=== PATIENT | female | born 1940 | race African-American/Black ===

== ENCOUNTER 2017-01-16 11:19 | Emergency (ER) | payer MEDICARE, MEDICAID ==
[~2017-01-16] VITALS: Ht 175.3 cm; Wt 113.0 kg
[~2017-01-16 11:19] MED LIST: AMLO5TAB4 PO; ASPI-1158 PO; BENA20TA3 PO; BRIM.2 BOTHEYE; FAMO40TA70 PO; INSULIN SUBCUT; METF100C2 PO; VITA400C24 PO
[2017-01-16] MEDS ORDERED: MORPHINE SULFATE 4 MG/ML CPJ (NOT FOR IM USE) IV STA (11:56)
[2017-01-16] MEDS ORDERED: ONDANSETRON HCL 4MG/2ML VIAL IV STA (11:56)
[2017-01-16] MEDS ORDERED: SODIUM CHLORIDE 0.9% 500 ML IV ONE (11:56)
[2017-01-16 12:22] LABS: BASOPHILS % 0.3 % (0.0-2.0); EOSINOPHILS % 2.5 % (0.0-5.0); HEMATOCRIT. 34.9 % (36.0-48.0); HEMOGLOBIN. 11.8 g/dL (12.0-16.0); LYMPHOCYTES % 31.4 % (20.0-50.0); MEAN CORPUSCULAR HEMOGLOBIN 32.2 pg (28.0-32.0); MEAN CORPUSCULAR VOLUME 95.6 fL (81.0-99.0); MEAN PLATELET VOLUME 8.6 fl (7.4-10.4); MONOCYTES % 8.8 % (2.0-8.0); PLATELET 152 x1000/uL (130-400); RED BLOOD CELL COUNT 3.65 mill/uL (4.2-5.4)
[2017-01-16 12:29] LABS: INR 1.2; PROTHROMBIN TIME 12.9 sec (9.4-11.6)
[2017-01-16 12:36] LABS: CLARITY URINE CLEAR (CLEAR); COLOR URINE YELLOW (YELLOW); GLUCOSE URINE 1+ (NEGATIVE); KETONES URINE NEGATIVE (NEGATIVE); LEUKOCYTE ESTERASE URINE NEGATIVE (NEGATIVE); NITRITE URINE NEGATIVE (NEGATIVE); OCCULT BLOOD URINE NEGATIVE (NEGATIVE); PROTEIN URINE NEGATIVE (NEGATIVE); SPECIFIC GRAVITY URINE 1.015 (1.005-1.030); UROBILINOGEN URINE 0.2 E.U./dL (0.2-1.0)
[2017-01-16 12:40] LABS: CARBON DIOXIDE 30 mEq/L (21-32); CHLORIDE 102 mEq/L (98-107); TROPONIN I < 0.02 ng/mL (0.00-0.04)
[2017-01-16 16:59] VITALS: BP 121/68
[2017-02-20] MEDS ORDERED: ESOM20CA PO (12:28)
[2017-02-24] MEDS ORDERED: P20 PO (20:14)
== END 2017-01-16 17:01 | disposition home or self-care (01) ==
LOC: ER 11:31 → CANRESERV 13:34 → ENRESERV 13:34 → CANBEDREQ 16:12 → ER 17:01
DX: R51 Headache (principal); R07.9 Chest pain, unspecified; R10.30 Lower abdominal pain, unspecified; I10 Essential (primary) hypertension; E78.00 Pure hypercholesterolemia, unspecified; E11.65 Type 2 diabetes mellitus with hyperglycemia; Z88.0 Allergy status to penicillin; Z91.013 Allergy to seafood; Z79.82 Long term (current) use of aspirin; Z79.4 Long term (current) use of insulin
CPT/HCPCS: 36415; 70450; 71010; 74176; 80053; 81001; 82962; 83690; 83880; 84484; 85025; 85610; 93005; 96361; 96374; 96375; 99285; J2270; J2405; J7040; J7030

== ENCOUNTER 2021-05-07 11:56 | Inpatient (IN) | payer MEDICARE, MEDICAID ==
[~2021-05-07] VITALS: Ht 154.9 cm; Wt 142.9 kg
[~2021-05-07 11:56] MED LIST changes: -ASPI-1158 PO; +ASPI-1406 PO; +BENA20TA10 PO; -BENA20TA3 PO; +ESOM20CA PO; +P20 PO
[2021-05-07] MEDS ORDERED: ASPIRIN 81MG TABLET PO ONE (12:15)
[2021-05-07 13:04] LABS: CHLORIDE 103 mEq/L (98-107)
[2021-05-07 13:06] LABS: BASOPHILS % 0.3 % (0.0-2.0); EOSINOPHILS % 3.5 % (0.0-5.0); HEMATOCRIT. 34.9 % (36.0-48.0); HEMOGLOBIN. 12.1 g/dL (12.0-16.0); LYMPHOCYTES % 31.3 % (20.0-50.0); MEAN CORPUSCULAR HEMOGLOBIN 32.8 pg (28.0-32.0); MEAN PLATELET VOLUME 8.4 fl (7.4-10.4); MONOCYTES % 9.3 % (2.0-8.0); NEUTROPHILS % 55.6 % (40.0-76.0); PLATELET 201 x1000/uL (130-400); RED BLOOD CELL COUNT 3.68 mill/uL (4.2-5.4)
[2021-05-07] MEDS ORDERED: ASPIRIN 81MG TABLET PO NR (18:45)
[2021-05-07] MEDS ORDERED: SODIUM CHLORIDE 0.9% 1,000 ML IV ONE (18:45)
[2021-05-07] MEDS: NITROGLYCERIN 0.4MG TABLET SL SL PRN ×2 (19:45→23:32)
[2021-05-07 20:23] LABS: CLARITY URINE CLEAR (CLEAR); COLOR URINE YELLOW (YELLOW); KETONES URINE TRACE (NEGATIVE); NITRITE URINE NEGATIVE (NEGATIVE); OCCULT BLOOD URINE NEGATIVE (NEGATIVE); PROTEIN URINE NEGATIVE (NEGATIVE); SPECIFIC GRAVITY URINE 1.025 (1.005-1.030)
[2021-05-07 20:24] LABS: LEUKOCYTE ESTERASE URINE TRACE (NEGATIVE)
[2021-05-07] MEDS ORDERED: LEVOFLOXACIN 750MG PREMIX 150 ML IV ONE (21:00)
[2021-05-07] MEDS ORDERED: METRONIDAZOLE 500 MG PREMIX 100 ML IV ONE (22:30)
[2021-05-08] MEDS: METRONIDAZOLE 500MG TABLET PO NR ×2 (00:26→00:28)
[2021-05-08] MEDS ORDERED: CLONIDINE 0.1MG TABLET PO PRN (01:00)
[2021-05-08] MEDS ORDERED: DIPHENHYDRAMINE 50MG/ML VIAL IV PRN (01:00)
[2021-05-08] MEDS ORDERED: ZOLPIDEM TARTRATE 5MG TABLET PO PRN (01:00)
[2021-05-08] MEDS ORDERED: ONDANSETRON HCL 4MG/2ML INJ IV PRN (01:00)
[2021-05-08] MEDS ORDERED: MAGNESIUM/ALUMINUM HYDROXIDE/SIMETHICONE 30ML UDC PO PRN (01:00)
[2021-05-08] MEDS ORDERED: MAGNESIUM HYDROXIDE 400MG/5ML 30ML UDC PO PRN (01:00)
[2021-05-08] MEDS ORDERED: ACETAMINOPHEN 325MG TABLET PO PRN (01:00)
[2021-05-08] MEDS ORDERED: DEXTROSE 50% WATER 50ML SYRINGE IV PRN (01:00)
[2021-05-08] MEDS ORDERED: NALOXONE HCL 0.4 MG/ML 1ML VIAL IV PRN (01:15)
[2021-05-08] MEDS: INSULIN LISPRO 100 UNITS/ML SUBCUT SCH ×4 (06:47→22:26)
[2021-05-08] MEDS: BLOOD SUGAR DIAGNOSTIC STRIP TEST SCH ×4 (06:47→21:00)
[2021-05-08] MEDS: PANTOPRAZOLE 40MG DR TABLET PO SCH ×2 (06:57→21:41)
[2021-05-08] MEDS: AMLODIPINE 5MG TABLET PO SCH (09:02)
[2021-05-08] MEDS: BENAZEPRIL 10MG TABLET PO SCH (10:37)
[2021-05-08 12:50] VITALS: BP 162/78
[2021-05-08 13:30] VITALS: BP 162/78
[2021-05-08] MEDS ORDERED: ATOR40TA70 PO (14:57)
[2021-05-08] MEDS ORDERED: FAMO-135 PO (14:57)
[2021-05-08 16:00] VITALS: BP 149/77
[2021-05-08] MEDS ORDERED: PNEUMOCOCCAL 23-VAL P-SAC VAC 0.5 ML IM ONE (16:45)
[2021-05-08] MEDS ORDERED: INFLUENZA VACCINE 05/PF 0.5 ML SYRINGE IM ONE (16:45)
[2021-05-08] MEDS: METHYL SALICYLATE/MENTHOL CREAM 85GM TOP SCH (18:00)
[2021-05-08] MEDS: LIDOCAINE 5% PATCH TOP SCH (18:04)
[2021-05-08] MEDS: ACETAMINOPHEN 325MG TABLET PO PRN (18:05)
[2021-05-08] MEDS: SODIUM CHLORIDE 0.9% INJ 3ML FLUSH IVF SCH ×3 (18:06→22:27)
[2021-05-08 20:00] VITALS: BP 152/76
[2021-05-08] MEDS ORDERED: LEVOFLOXACIN 500MG PREMIX 100 ML IV SCH (21:00)
[2021-05-08] MEDS: TRAMADOL 50MG TABLET PO PRN (21:42)
[2021-05-08] MEDS: INSULIN GLARGINE UD 100 UNITS/ML SYR SUBCUT SCH (22:25)
[2021-05-08] MEDS: DORZOLAMIDE 2% OPHTH 10 ML BOTTLE BOTHEYE SCH (22:27)
[2021-05-09] VITALS: BP 140/93
[2021-05-09 04:00] VITALS: BP 157/87
[2021-05-09] MEDS: SODIUM CHLORIDE 0.9% INJ 3ML FLUSH IVF SCH ×3 (06:00→22:02)
[2021-05-09] MEDS: METHYL SALICYLATE/MENTHOL CREAM 85GM TOP SCH ×4 (06:00→18:26)
[2021-05-09] MEDS: BLOOD SUGAR DIAGNOSTIC STRIP TEST SCH ×4 (06:45→21:00)
[2021-05-09] MEDS: PANTOPRAZOLE 40MG DR TABLET PO SCH (06:45)
[2021-05-09 08:00] VITALS: BP 133/77
[2021-05-09 08:50] LABS: FOLIC ACID (FOLATE) SERUM 12.9 ng/mL (>5.38)
[2021-05-09] MEDS: LIDOCAINE 5% PATCH TOP SCH (09:00)
[2021-05-09] MEDS: DORZOLAMIDE 2% OPHTH 10 ML BOTTLE BOTHEYE SCH ×2 (09:05→22:01)
[2021-05-09] MEDS: BENAZEPRIL 10MG TABLET PO SCH (09:05)
[2021-05-09] MEDS: AMLODIPINE 5MG TABLET PO SCH (09:06)
[2021-05-09] MEDS: TRAMADOL 50MG TABLET PO PRN ×2 (09:06→16:29)
[2021-05-09] MEDS: METFORMIN HCL 500MG TABLET PO SCH ×2 (09:06→16:29)
[2021-05-09] MEDS: INSULIN LISPRO 100 UNITS/ML SUBCUT SCH ×4 (09:07→22:06)
[2021-05-09 12:00] VITALS: BP 146/60
[2021-05-09 15:48] VITALS: BP 131/71
[2021-05-09] MEDS: ACETAMINOPHEN 500MG TABLET PO SCH ×2 (16:15→21:55)
[2021-05-09] MEDS: DOCUSATE SODIUM 100MG CAPSULE PO SCH (16:29)
[2021-05-09] MEDS ORDERED: LORAZEPAM 2MG/ML CPJ IV NR (16:30)
[2021-05-09 20:00] VITALS: BP 135/90
[2021-05-09] MEDS: FAMOTIDINE 20MG TABLET PO SCH (21:54)
[2021-05-09] MEDS: INSULIN GLARGINE UD 100 UNITS/ML SYR SUBCUT SCH (22:01)
[2021-05-09] MEDS: POLYETHYLENE GLYCOL 3350 (17GM) 1 DOSE PACK PO SCH (22:01)
[2021-05-10] VITALS: BP 119/66
[2021-05-10] MEDS: METHYL SALICYLATE/MENTHOL CREAM 85GM TOP SCH ×4 (00:50→18:07)
[2021-05-10 04:00] VITALS: BP 121/83
[2021-05-10] MEDS: ACETAMINOPHEN 500MG TABLET PO SCH ×4 (06:09→22:50)
[2021-05-10] MEDS: SODIUM CHLORIDE 0.9% INJ 3ML FLUSH IVF SCH ×3 (06:10→22:00)
[2021-05-10] MEDS: BLOOD SUGAR DIAGNOSTIC STRIP TEST SCH ×4 (06:14→21:05)
[2021-05-10] MEDS: INSULIN LISPRO 100 UNITS/ML SUBCUT SCH ×4 (07:15→21:00)
[2021-05-10 08:00] VITALS: BP 139/68
[2021-05-10] MEDS: DOCUSATE SODIUM 100MG CAPSULE PO SCH ×2 (08:31→17:00)
[2021-05-10] MEDS: FAMOTIDINE 20MG TABLET PO SCH ×2 (08:31→21:06)
[2021-05-10] MEDS: METFORMIN HCL 500MG TABLET PO SCH ×2 (08:31→18:06)
[2021-05-10] MEDS: BENAZEPRIL 10MG TABLET PO SCH (08:31)
[2021-05-10] MEDS: DORZOLAMIDE 2% OPHTH 10 ML BOTTLE BOTHEYE SCH ×2 (08:32→21:05)
[2021-05-10] MEDS: TRAMADOL 50MG TABLET PO PRN (08:32)
[2021-05-10] MEDS: AMLODIPINE 5MG TABLET PO SCH (08:34)
[2021-05-10] MEDS: LIDOCAINE 5% PATCH TOP SCH (11:15)
[2021-05-10 12:00] VITALS: BP 136/65
[2021-05-10 16:00] VITALS: BP 142/69
[2021-05-10 20:00] VITALS: BP 154/82
[2021-05-10] MEDS: POLYETHYLENE GLYCOL 3350 (17GM) 1 DOSE PACK PO SCH (21:05)
[2021-05-10] MEDS: INSULIN GLARGINE UD 100 UNITS/ML SYR SUBCUT SCH (22:52)
[2021-05-11] VITALS: BP 136/52
[2021-05-11] MEDS: METHYL SALICYLATE/MENTHOL CREAM 85GM TOP SCH ×4 (00:45→18:29)
[2021-05-11 04:00] VITALS: BP 116/60
[2021-05-11] MEDS: ACETAMINOPHEN 500MG TABLET PO SCH ×3 (05:11→17:31)
[2021-05-11] MEDS: SODIUM CHLORIDE 0.9% INJ 3ML FLUSH IVF SCH ×2 (06:21→13:28)
[2021-05-11] MEDS: INSULIN LISPRO 100 UNITS/ML SUBCUT SCH ×4 (07:15→22:11)
[2021-05-11] MEDS: BLOOD SUGAR DIAGNOSTIC STRIP TEST SCH ×4 (07:20→21:00)
[2021-05-11 08:00] VITALS: BP 125/67
[2021-05-11] MEDS: BENAZEPRIL 10MG TABLET PO SCH (09:00)
[2021-05-11] MEDS: AMLODIPINE 5MG TABLET PO SCH (09:00)
[2021-05-11] MEDS: DOCUSATE SODIUM 100MG CAPSULE PO SCH ×2 (09:13→17:31)
[2021-05-11] MEDS: FAMOTIDINE 20MG TABLET PO SCH ×2 (09:13→22:09)
[2021-05-11] MEDS: METFORMIN HCL 500MG TABLET PO SCH ×2 (09:13→17:31)
[2021-05-11] MEDS: LIDOCAINE 5% PATCH TOP SCH (09:15)
[2021-05-11] MEDS: DORZOLAMIDE 2% OPHTH 10 ML BOTTLE BOTHEYE SCH ×2 (09:18→22:09)
[2021-05-11 12:00] VITALS: BP 169/73
[2021-05-11] MEDS: TRAMADOL 50MG TABLET PO PRN ×2 (13:07→22:09)
[2021-05-11 16:00] VITALS: BP 153/92
[2021-05-11] MEDS ORDERED: ACETAMINOPHEN 500MG TABLET PO PRN (18:00)
[2021-05-11] MEDS ORDERED: KETOROLAC 10MG TABLET PO PRN (19:45)
[2021-05-11 20:00] VITALS: BP 157/58
[2021-05-11] MEDS: POLYETHYLENE GLYCOL 3350 (17GM) 1 DOSE PACK PO SCH (22:09)
[2021-05-11] MEDS: INSULIN GLARGINE UD 100 UNITS/ML SYR SUBCUT SCH (22:10)
[2021-05-12] VITALS: BP 151/82
[2021-05-12] MEDS: SODIUM CHLORIDE 0.9% INJ 3ML FLUSH IVF SCH ×4 (00:47→22:36)
[2021-05-12] MEDS: METHYL SALICYLATE/MENTHOL CREAM 85GM TOP SCH ×5 (00:48→22:00)
[2021-05-12 04:00] VITALS: BP 132/71
[2021-05-12] MEDS: TRAMADOL 50MG TABLET PO PRN ×2 (05:40→13:44)
[2021-05-12] MEDS: BLOOD SUGAR DIAGNOSTIC STRIP TEST SCH ×4 (06:45→21:00)
[2021-05-12] MEDS: METFORMIN HCL 500MG TABLET PO SCH ×2 (07:15→17:15)
[2021-05-12] MEDS: INSULIN LISPRO 100 UNITS/ML SUBCUT SCH ×4 (07:15→21:00)
[2021-05-12] MEDS: DOCUSATE SODIUM 100MG CAPSULE PO SCH ×2 (09:00→17:00)
[2021-05-12] MEDS: BENAZEPRIL 10MG TABLET PO SCH (09:00)
[2021-05-12] MEDS: DORZOLAMIDE 2% OPHTH 10 ML BOTTLE BOTHEYE SCH ×2 (09:00→22:35)
[2021-05-12] MEDS: LIDOCAINE 5% PATCH TOP SCH (09:00)
[2021-05-12] MEDS: AMLODIPINE 5MG TABLET PO SCH (09:00)
[2021-05-12] MEDS: FAMOTIDINE 20MG TABLET PO SCH ×2 (09:00→22:35)
[2021-05-12 20:00] VITALS: BP 144/78
[2021-05-12] MEDS: INSULIN GLARGINE UD 100 UNITS/ML SYR SUBCUT SCH (22:00)
[2021-05-12] MEDS: POLYETHYLENE GLYCOL 3350 (17GM) 1 DOSE PACK PO SCH (22:35)
[2021-05-13] VITALS: BP 135/68
[2021-05-13 04:00] VITALS: BP 140/71
[2021-05-13] MEDS: SODIUM CHLORIDE 0.9% INJ 3ML FLUSH IVF SCH ×3 (05:58→22:15)
[2021-05-13] MEDS: METHYL SALICYLATE/MENTHOL CREAM 85GM TOP SCH ×3 (05:58→17:31)
[2021-05-13] MEDS: BLOOD SUGAR DIAGNOSTIC STRIP TEST SCH ×4 (05:59→21:57)
[2021-05-13] MEDS: INSULIN LISPRO 100 UNITS/ML SUBCUT SCH ×4 (07:15→21:54)
[2021-05-13 08:00] VITALS: BP 167/72
[2021-05-13] MEDS: DORZOLAMIDE 2% OPHTH 10 ML BOTTLE BOTHEYE SCH ×2 (09:26→21:57)
[2021-05-13] MEDS: AMLODIPINE 5MG TABLET PO SCH ×3 (09:27→21:51)
[2021-05-13] MEDS: DOCUSATE SODIUM 100MG CAPSULE PO SCH ×2 (09:27→17:31)
[2021-05-13] MEDS: FAMOTIDINE 20MG TABLET PO SCH ×2 (09:27→22:14)
[2021-05-13] MEDS: BENAZEPRIL 10MG TABLET PO SCH (09:27)
[2021-05-13] MEDS: METFORMIN HCL 500MG TABLET PO SCH ×2 (09:27→17:31)
[2021-05-13] MEDS: LIDOCAINE 5% PATCH TOP SCH (09:28)
[2021-05-13] MEDS: ACETAMINOPHEN 325MG TABLET PO PRN (09:29)
[2021-05-13 12:00] VITALS: BP 165/80
[2021-05-13 16:00] VITALS: BP 155/60
[2021-05-13] MEDS: POLYETHYLENE GLYCOL 3350 (17GM) 1 DOSE PACK PO SCH (21:49)
[2021-05-13] MEDS: INSULIN GLARGINE UD 100 UNITS/ML SYR SUBCUT SCH (21:53)
[2021-05-13 22:00] VITALS: BP 147/87
[2021-05-13] MEDS ORDERED: MICONAZOLE NITRATE 100MG VAG SUPP VG SCH (22:00)
[2021-05-13] MEDS ORDERED: FLUCONAZOLE 100MG TABLET PO SCH (22:00)
[2021-05-16 15:11] LABS: 25-HYDROXY VITAMIN D3 47 ng/mL (.)
== END 2021-05-13 22:33 | disposition short-term general hospital (02) | DRG 552 ==
LOC: ER 11:56 → MICUSO 20:53 → EDBEDREQTM 21:07 → EDBEDREQ 21:07 → 5WST 05-08 12:47
PROVIDERS: ADMIT Internal Medicine; ATTEND Internal Medicine
DX: M47.814 Spondylosis without myelopathy or radiculopathy, thoracic region (principal); N39.0 Urinary tract infection, site not specified; Z68.42 Body mass index [BMI] 45.0-49.9, adult; M48.061 Spinal stenosis, lumbar region without neurogenic claudication; E66.01 Morbid (severe) obesity due to excess calories; E78.00 Pure hypercholesterolemia, unspecified; G56.03 Carpal tunnel syndrome, bilateral upper limbs; H40.9 Unspecified glaucoma; I25.10 Atherosclerotic heart disease of native coronary artery without angina pectoris; M16.0 Bilateral primary osteoarthritis of hip; E11.42 Type 2 diabetes mellitus with diabetic polyneuropathy; I10 Essential (primary) hypertension; G89.29 Other chronic pain; Z20.822 Contact with and (suspected) exposure to COVID-19; K21.9 Gastro-esophageal reflux disease without esophagitis; R53.81 Other malaise; E78.5 Hyperlipidemia, unspecified; M25.78 Osteophyte, vertebrae; M48.02 Spinal stenosis, cervical region; B37.3 Candidiasis of vulva and vagina; Z82.49 Family history of ischemic heart disease and other diseases of the circulatory system; Z88.8 Allergy status to other drugs, medicaments and biological substances; Z88.0 Allergy status to penicillin; Z91.013 Allergy to seafood; M79.18 Myalgia, other site
CPT/HCPCS: 36415; 70551; 71045; 72141; 72146; 72148; 74176; 80053; 81003; 82306; 82607; 82746; 82962; 83880; 84443; 84484; 85025; 87426; 93005; 97116; 97162; 97166; 97530; 99285; J1815; J1956; J2060; J2405; J3490; J7030

== ENCOUNTER 2022-09-24 18:39 | Emergency (ER) | payer MEDICARE, MEDICAID ==
[~2022-09-24] VITALS: Ht 170.2 cm; Wt 109.0 kg
[~2022-09-24 18:39] MED LIST changes: +ATOR40TA70 PO; +BENA-8 PO; -BENA20TA10 PO; -FAMO40TA70 PO; -P20 PO
[2022-09-24 18:49] VITALS: BP 174/88
[2022-09-24 19:19] LABS: BASOPHILS % 0.2 % (0.0-2.0); EOSINOPHILS % 3.2 % (0.0-5.0); HEMATOCRIT. 34.7 % (36.0-48.0); HEMOGLOBIN. 11.8 g/dL (12.0-16.0); LYMPHOCYTES % 41.3 % (20.0-50.0); MEAN CORPUSCULAR HEMOGLOBIN 32.4 pg (28.0-32.0); MEAN CORPUSCULAR VOLUME 95.5 fL (81.0-99.0); MEAN PLATELET VOLUME 8.2 fl (7.4-10.4); MONOCYTES % 9.2 % (2.0-8.0); NEUTROPHILS % 46.1 % (40.0-76.0); PLATELET 213 x1000/uL (130-400); RED BLOOD CELL COUNT 3.63 mill/uL (4.2-5.4); RED CELL DISTRIBUTION WIDTH 12.8 % (11.6-14.6)
[2022-09-24 19:24] LABS: CHLORIDE 104 mEq/L (98-107)
[2022-09-24 19:37] LABS: CLARITY URINE CLEAR (CLEAR); COLOR URINE YELLOW (YELLOW); KETONES URINE NEGATIVE (NEGATIVE); LEUKOCYTE ESTERASE URINE NEGATIVE (NEGATIVE); NITRITE URINE NEGATIVE (NEGATIVE); OCCULT BLOOD URINE NEGATIVE (NEGATIVE); PROTEIN URINE NEGATIVE (NEGATIVE); SPECIFIC GRAVITY URINE 1.008 (1.005-1.030); UROBILINOGEN URINE 0.2 E.U./dL (0.2-1.0)
[2022-09-25] MEDS ORDERED: HYDROCODONE/ACETAMINOPHEN 5/325MG TABLET PO ONE (01:45)
[2022-09-25] MEDS ORDERED: ONDANSETRON 4MG ODT PO ONE (01:45)
== END 2022-09-25 05:52 | disposition home or self-care (01) ==
LOC: ER 18:39
DX: R10.33 Periumbilical pain (principal); M79.10 Myalgia, unspecified site; E11.9 Type 2 diabetes mellitus without complications; I10 Essential (primary) hypertension; Z88.0 Allergy status to penicillin; Z91.013 Allergy to seafood; Z79.82 Long term (current) use of aspirin; Z79.84 Long term (current) use of oral hypoglycemic drugs
CPT/HCPCS: 36415; 74176; 80053; 81003; 83690; 84484; 85025; 93005; 99284; Q0162

== ENCOUNTER 2022-11-20 14:59 | Emergency (ER) | payer MEDICARE, MEDICAID ==
[~2022-11-20] VITALS: Ht 175.3 cm; Wt 111.0 kg
[2022-11-20] MEDS ORDERED: HYDROCODONE/ACETAMINOPHEN 5/325MG TABLET PO ONE (17:00)
[2022-11-20 17:20] LABS: BASOPHILS % 0.6 % (0.0-2.0); EOSINOPHILS % 2.8 % (0.0-5.0); HEMATOCRIT. 35.8 % (36.0-48.0); HEMOGLOBIN. 12.1 g/dL (12.0-16.0); LYMPHOCYTES % 33.8 % (20.0-50.0); MEAN CORPUSCULAR HEMOGLOBIN 32.4 pg (28.0-32.0); MEAN CORPUSCULAR HGB CONC 33.7 g/dL (31.0-37.0); MEAN CORPUSCULAR VOLUME 96.2 fL (81.0-99.0); MEAN PLATELET VOLUME 8.2 fl (7.4-10.4); MONOCYTES % 8.1 % (2.0-8.0); NEUTROPHILS % 54.7 % (40.0-76.0); PLATELET 198 x1000/uL (130-400); RED BLOOD CELL COUNT 3.72 mill/uL (4.2-5.4); RED CELL DISTRIBUTION WIDTH 12.9 % (11.6-14.6); WHITE BLOOD COUNT 5.6 x1000/uL (4.5-11.0)
[2022-11-20 17:27] LABS: CHLORIDE 103 mEq/L (98-107); INDEX HEMOLYSI 1 (1-3); INDEX ICTERIC 1 (1-4); INDEX LIPEMIC 1 (1-3); SODIUM 137 mEq/L (136-145)
[2022-11-20 17:28] LABS: INR 1.2; PROTHROMBIN TIME 12.4 sec (9.6-11.0)
[2022-11-20 17:36] LABS: ALANINE AMINOTRANSFERASE 19 IU/L (13-61); ALBUMIN 3.5 g/dL (3.4-5.0); ASPARTATE AMINOTRANSFERASE 16 IU/L (15-37); BILIRUBIN TOTAL 0.3 mg/dL (0.1-1.0); CARBON DIOXIDE 30 mEq/L (21-32); GLUCOSE 241 mg/dL (70-105); PROTEIN TOTAL 7.2 g/dL (6.0-8.3); UREA NITROGEN BLOOD 15 mg/dL (7-21)
[2022-11-20 18:13] LABS: CLARITY URINE CLEAR (CLEAR); COLOR URINE YELLOW (YELLOW); GLUCOSE URINE 1+ (NEGATIVE); KETONES URINE NEGATIVE (NEGATIVE); LEUKOCYTE ESTERASE URINE NEGATIVE (NEGATIVE); NITRITE URINE NEGATIVE (NEGATIVE); OCCULT BLOOD URINE NEGATIVE (NEGATIVE); PROTEIN URINE NEGATIVE (NEGATIVE); SPECIFIC GRAVITY URINE 1.018 (1.005-1.030); UROBILINOGEN URINE 0.2 E.U./dL (0.2-1.0)
[2022-11-20] MEDS ORDERED: FAMOTIDINE 20MG TABLET PO ONE (18:15)
[2022-11-20 18:17] LABS: RBC URINE 0-2 /hpf (0-2); WBC URINE 0-2 /hpf (0-2); YEAST URINE NONE SEEN
[2022-11-20 19:01] LABS: BACTERIA URINE 2+; SQUAMOUS EPITHELIAL CELL URINE FEW /lpf (RARE/1+)
[2022-11-20] MEDS ORDERED: KETO10TA2 MT (19:44)
[2022-11-20] MEDS ORDERED: KETOROLAC 60MG/2ML VIAL IM ONE (19:45)
[2022-11-20] MEDS ORDERED: FAMO-135 MT (20:02)
[2022-11-20 20:20] VITALS: BP 132/74; PULSE 92; RESP 14; TEMP 98
== END 2022-11-20 20:22 | disposition home or self-care (01) ==
LOC: ER 14:59
DX: R10.9 Unspecified abdominal pain (principal); E11.65 Type 2 diabetes mellitus with hyperglycemia; I10 Essential (primary) hypertension; Z68.36 Body mass index [BMI] 36.0-36.9, adult; Z91.013 Allergy to seafood; Z88.0 Allergy status to penicillin; Z88.8 Allergy status to other drugs, medicaments and biological substances; Z79.899 Other long term (current) drug therapy; Z79.82 Long term (current) use of aspirin
CPT/HCPCS: 99285; 74176; 76856; 80053; 81003; 83690; 85025; 85610; 36415; 96372; J1885

== ENCOUNTER → 2023-12-26 | Outpatient (CLI) | payer MEDICARE, MEDICAID ==
[~2023-12-26] MED LIST changes: +AMLO5TAB88 PO; +CHOL400C8 PO; +DOCU-150 PO; +DORZ10DR8 BOTHEYE; +FAMO-135 MT; +FURO40TA5 PO; +HUM100IN SQ; +IBUP-2030 PO; +KETO10TA2 MT; +METF-414 PO; +METO-293 PO; +OMEP40CA20 MT; +PANT40TA51 PO; +POLY17PO43 PO; +POTA-189 PO; +SUCR1TAB30 PO; +VITA400T7 PO
== END | disposition home or self-care (01) ==
LOC: MRI 10:40
PROVIDERS: ATTEND Internal Medicine Critical Care Medicine
DX: M75.102 Unspecified rotator cuff tear or rupture of left shoulder, not specified as traumatic (principal); M19.012 Primary osteoarthritis, left shoulder; M25.512 Pain in left shoulder
CPT/HCPCS: 73221

== ENCOUNTER 2024-03-19 13:58 | Emergency (ER) | payer MEDICAID, MEDICARE ==
[~2024-03-19] VITALS: Ht 175.3 cm; Wt 113.0 kg
[~2024-03-19 13:58] MED LIST changes: -AMLO5TAB4 PO; +AMLO5TAB5 PO; -DOCU-150 PO; +DOCU-422 PO
[2024-03-19 14:04] VITALS: O2SAT 99
[2024-03-19 14:46] LABS: BASOPHILS % 0.3 % (0.0-2.0); EOSINOPHILS % 2.4 % (0.0-5.0); HEMATOCRIT. 37.4 % (36.0-48.0); HEMOGLOBIN. 12.4 g/dL (12.0-16.0); LYMPHOCYTES % 25.8 % (20.0-50.0); MEAN CORPUSCULAR HEMOGLOBIN 32.8 pg (28.0-32.0); MEAN CORPUSCULAR HGB CONC 33.2 g/dL (31.0-37.0); MEAN CORPUSCULAR VOLUME 98.9 fL (81.0-99.0); MEAN PLATELET VOLUME 8.3 fl (7.4-10.4); MONOCYTES % 6.5 % (2.0-8.0); PLATELET 201 x1000/uL (130-400); RED BLOOD CELL COUNT 3.79 mill/uL (4.2-5.4); RED CELL DISTRIBUTION WIDTH 12.9 % (11.6-14.6)
[2024-03-19 14:50] LABS: CHLORIDE 103 mEq/L (98-107); POTASSIUM 4.5 mEq/L (3.5-5.1); SODIUM 139 mEq/L (136-145)
[2024-03-19 14:51] LABS: CALCIUM 9.6 mg/dL (8.7-10.4); CARBON DIOXIDE 31 mEq/L (21-32)
[2024-03-19 14:56] LABS: CREATININE 1.1 mg/dL (0.6-1.0); GLUCOSE 339 mg/dL (70-105); TROPONIN I HIGH SENSITIVITY 6 ng/L (3.0-34); UREA NITROGEN BLOOD 13 mg/dL (9-23)
[2024-03-19 14:58] LABS: ALANINE AMINOTRANSFERASE 10 IU/L (10-49); ALBUMIN 4.1 g/dL (3.2-4.8); ASPARTATE AMINOTRANSFERASE 14 IU/L (<34); BILIRUBIN TOTAL 0.5 mg/dL (0.1-1.0); PROTEIN TOTAL 7.1 g/dL (6.0-8.3)
[2024-03-19 15:09] LABS: BILIRUBIN DIRECT < 0.1 mg/dL (<=3.0)
[2024-03-19] MEDS: ACETAMINOPHEN 500MG TABLET PO ONE (15:57)
[2024-03-19] MEDS ORDERED: TOPUD MT (16:24)
[2024-03-19 17:42] VITALS: BP 138/75; PULSE 98; RESP 14; TEMP 36.78072; O2SAT 98
== END 2024-03-19 18:06 | disposition home or self-care (01) ==
LOC: ER 13:58
DX: R10.13 Epigastric pain (principal); I10 Essential (primary) hypertension; Z79.899 Other long term (current) drug therapy; Z79.84 Long term (current) use of oral hypoglycemic drugs; Z79.82 Long term (current) use of aspirin; Z88.0 Allergy status to penicillin; Z88.8 Allergy status to other drugs, medicaments and biological substances
CPT/HCPCS: 36415; 74176; 80048; 80076; 84484; 85025; 93005; 99284

== ENCOUNTER 2024-08-20 12:49 | Inpatient (IN) | payer MEDICARE, MEDICAID ==
[~2024-08-20] VITALS: Ht 170.2 cm; Wt 117.9 kg
[~2024-08-20 12:49] MED LIST changes: +TOPUD MT
[2024-08-20] MEDS: NITROGLYCERIN OINT 1GM/INCH UDPKT TD ONE (13:33)
[2024-08-20] MEDS: FUROSEMIDE 40MG/4ML VIAL IV ONE (13:33)
[2024-08-20] MEDS: ASPIRIN 81MG TABLET PO ONE (13:34)
[2024-08-20 13:38] LABS: BASOPHILS % 0.3 % (0.0-2.0); EOSINOPHILS % 4.7 % (0.0-5.0); HEMATOCRIT. 37.4 % (36.0-48.0); HEMOGLOBIN. 12.3 g/dL (12.0-16.0); LYMPHOCYTES % 25.2 % (20.0-50.0); MEAN CORPUSCULAR HEMOGLOBIN 32.1 pg (28.0-32.0); MEAN CORPUSCULAR HGB CONC 32.9 g/dL (31.0-37.0); MEAN CORPUSCULAR VOLUME 97.6 fL (81.0-99.0); MEAN PLATELET VOLUME 8.7 fl (7.4-10.4); NEUTROPHILS % 59.8 % (40.0-76.0); PLATELET 189 x1000/uL (130-400); RED BLOOD CELL COUNT 3.83 mill/uL (4.2-5.4); RED CELL DISTRIBUTION WIDTH 12.8 % (11.6-14.6); WHITE BLOOD COUNT 3.6 x1000/uL (4.5-11.0)
[2024-08-20 13:53] LABS: CARBON DIOXIDE 30 mEq/L (21-32); CHLORIDE 102 mEq/L (98-107); POTASSIUM 4.9 mEq/L (3.5-5.1); SODIUM 140 mEq/L (136-145)
[2024-08-20 13:54] LABS: CALCIUM 9.5 mg/dL (8.7-10.4)
[2024-08-20 13:58] LABS: CREATININE 1.2 mg/dL (0.6-1.0); GLUCOSE 296 mg/dL (70-105)
[2024-08-20 13:59] LABS: TROPONIN I HIGH SENSITIVITY 8 ng/L (3.0-34); UREA NITROGEN BLOOD 11 mg/dL (9-23)
[2024-08-20 14:00] LABS: ALANINE AMINOTRANSFERASE 11 IU/L (10-49); ALBUMIN 3.9 g/dL (3.2-4.8); ASPARTATE AMINOTRANSFERASE 21 IU/L (<34)
[2024-08-20 14:01] LABS: BILIRUBIN DIRECT < 0.1 mg/dL (<=3.0); BILIRUBIN TOTAL 0.5 mg/dL (0.1-1.0); PROTEIN TOTAL 7.1 g/dL (6.0-8.3)
[2024-08-20 14:47] LABS: INR 1.2; PARTIAL THROMBOPLASTIN TIME < 21.0 sec (23.4-31.0); PROTHROMBIN TIME 12.4 sec (9.6-11.0)
[2024-08-20] MEDS: ENOXAPARIN 100MG/ML SYR SUBCUT ONE (15:30)
[2024-08-20 16:00] VITALS: BP 150/72; PULSE 85; RESP 16; TEMP 36.4; O2SAT 96
[2024-08-20 16:41] VITALS: BP 135/71; PULSE 68; RESP 18; TEMP 36.7
[2024-08-20 17:02] VITALS: BP 150/73; PULSE 70; RESP 20; TEMP 37.1; O2SAT 100
[2024-08-20 20:00] VITALS: BP 156/85; PULSE 83; RESP 20; TEMP 36.3; O2SAT 98
[2024-08-20] MEDS ORDERED: CLONIDINE 0.2MG TABLET PO PRN (21:00)
[2024-08-20] MEDS ORDERED: DEXTROSE 50% WATER 50ML SYRINGE IV PRN (21:00)
[2024-08-20] MEDS ORDERED: DIPHENHYDRAMINE 50MG/ML VIAL IV PRN (21:00)
[2024-08-20] MEDS ORDERED: ONDANSETRON HCL 4MG/2ML INJ IV PRN (21:00)
[2024-08-20] MEDS ORDERED: ACETAMINOPHEN 325MG TABLET PO PRN (21:00)
[2024-08-20] MEDS ORDERED: MAGNESIUM/ALUMINUM HYDROXIDE/SIMETHICONE 30ML UDC PO PRN (21:00)
[2024-08-20] MEDS ORDERED: IPRATROPIUM/ALBUTEROL 0.5-3(2.5)MG/3ML NEB HHN PRN (21:00)
[2024-08-20] MEDS: INSULIN LISPRO 100 UNITS/ML SUBCUT SCH (21:00)
[2024-08-20] MEDS: AMLODIPINE 5MG TABLET PO SCH (21:46)
[2024-08-20] MEDS: ATORVASTATIN CALCIUM 20MG TABLET PO SCH (21:46)
[2024-08-20] MEDS: GUAIFENESIN 600MG ER TABLET PO SCH (21:46)
[2024-08-20] MEDS: PANTOPRAZOLE 40MG DR TABLET PO SCH (21:47)
[2024-08-20] MEDS: SODIUM CHLORIDE 0.9% 3ML FLUSH IVF SCH (21:47)
[2024-08-20] MEDS: ZOLPIDEM TARTRATE 5MG TABLET PO SCH (21:47)
[2024-08-20] MEDS: CETIRIZINE 10MG TABLET PO SCH (21:47)
[2024-08-20] MEDS: METHYLPREDNISOLONE SOD SUCC 40MG/ML (ACT-O-VIAL) IV NR (21:47)
[2024-08-20] MEDS: BLOOD SUGAR DIAGNOSTIC STRIP TEST SCH (21:47)
[2024-08-20] MEDS: INSULIN GLARGINE 100 UNITS/ML SUBCUT SCH (21:48)
[2024-08-20] MEDS: DORZOLAMIDE 2% OPHTH 10 ML BOTTLE BOTHEYE SCH (22:00)
[2024-08-21] VITALS (8 sets, daily range): BP systolic 112–164; BP diastolic 71–81; PULSE 73–89; RESP 18–20; TEMP 36.2–37.2; O2SAT 97–100
[2024-08-21] MEDS ORDERED: IOHEXOL-350 100 ML BOTTLE ONE (08:12)
[2024-08-21] MEDS ORDERED: LOTEN PO SCH (09:00)
[2024-08-21] MEDS: ACETAMINOPHEN 325MG TABLET PO PRN (09:10)
[2024-08-21] MEDS: LISINOPRIL 20MG TABLET PO SCH (09:11)
[2024-08-21] MEDS: AZITHROMYCIN 500 MG TABLET PO SCH (09:11)
[2024-08-21] MEDS: ENOXAPARIN 40MG/0.4ML SYR SUBCUT SCH (09:12)
[2024-08-21] MEDS: IPRATROPIUM/ALBUTEROL 0.5-3(2.5)MG/3ML NEB HHN SCH (11:20)
[2024-08-21] MEDS: FAMOTIDINE 20MG TABLET PO SCH (13:55)
[2024-08-21] MEDS: LORATADINE 10MG TABLET PO SCH (14:46)
[2024-08-21] MEDS: METHYLPREDNISOLONE SOD SUCC 40MG/ML (ACT-O-VIAL) IV SCH (14:46)
[2024-08-21] MEDS: MONTELUKAST SODIUM 10MG TABLET PO SCH (19:01)
[2024-08-21] MEDS ORDERED: INSULIN GLARGINE 100 UNITS/ML SUBCUT SCH (22:28)
[2024-08-21] MEDS: INSULIN GLARGINE 100 UNITS/ML SUBCUT NR (23:01)
[2024-08-21] MEDS: PROMETHAZINE/DEXTROMETHORPHAN 6.25-15MG/5ML PO PRN (23:39)
[2024-08-22] VITALS (10 sets, daily range): BP systolic 104–155; BP diastolic 44–77; PULSE 74–101; RESP 16–20; TEMP 36.2–36.8; O2SAT 93–99
[2024-08-22] MEDS: METFORMIN HCL 500MG TABLET PO SCH (10:09)
[2024-08-22] MEDS: METHYLPREDNISOLONE SOD SUCC 40MG/ML (ACT-O-VIAL) IV SCH (13:53)
[2024-08-22] MEDS: PANTOPRAZOLE 40MG DR TABLET PO SCH (16:23)
[2024-08-22] MEDS: INSULIN GLARGINE 100 UNITS/ML SUBCUT SCH (22:00)
[2024-08-23] VITALS (10 sets, daily range): BP systolic 120–149; BP diastolic 48–75; PULSE 75–99; RESP 14–20; TEMP 36.3–36.8; O2SAT 94–100
[2024-08-23] MEDS: KETOROLAC 30MG/ML VIAL IV NR (00:32)
[2024-08-23] MEDS: INSULIN GLARGINE 100 UNITS/ML SUBCUT SCH (21:38)
[2024-08-24] VITALS (10 sets, daily range): BP systolic 111–154; BP diastolic 52–74; PULSE 78–101; RESP 18–20; TEMP 36.1–36.9; O2SAT 95–100
[2024-08-24 13:31] LABS: BASOPHILS % 0.6 % (0.0-2.0); EOSINOPHILS % 1.1 % (0.0-5.0); HEMATOCRIT. 36.3 % (36.0-48.0); HEMOGLOBIN. 12.3 g/dL (12.0-16.0); LYMPHOCYTES % 28.5 % (20.0-50.0); MEAN CORPUSCULAR HEMOGLOBIN 32.9 pg (28.0-32.0); MEAN CORPUSCULAR HGB CONC 33.8 g/dL (31.0-37.0); MEAN CORPUSCULAR VOLUME 97.4 fL (81.0-99.0); MEAN PLATELET VOLUME 7.7 fl (7.4-10.4); MONOCYTES % 8.8 % (2.0-8.0); PLATELET 196 x1000/uL (130-400); RED BLOOD CELL COUNT 3.73 mill/uL (4.2-5.4); RED CELL DISTRIBUTION WIDTH 12.8 % (11.6-14.6); WHITE BLOOD COUNT 6.5 x1000/uL (4.5-11.0)
[2024-08-24] MEDS: BUDESONIDE 0.5MG/2ML NEB HHN SCH (14:24)
[2024-08-25] VITALS (10 sets, daily range): BP systolic 116–144; BP diastolic 57–83; PULSE 70–103; RESP 18–20; TEMP 36.1–37.1; O2SAT 97–100
[2024-08-25] MEDS ORDERED: THROAT LOZENGES-BENZOCAINE/MENTH/CETYLPYRD CL LOZENGES MM PRN (15:45)
[2024-08-26] VITALS (9 sets, daily range): BP systolic 108–127; BP diastolic 49–69; PULSE 67–99; RESP 16–24; TEMP 36–36.6; O2SAT 96–100
[2024-08-26] MEDS: BENZONATATE 100MG CAPSULE PO NR (15:36)
[2024-08-26] MEDS: IPRATROPIUM/ALBUTEROL 0.5-3(2.5)MG/3ML NEB HHN SCH (19:40)
[2024-08-26] MEDS: BENZONATATE 100MG CAPSULE PO PRN (21:12)
[2024-08-27] VITALS: BP 131/62; PULSE 80; RESP 18; TEMP 36.9; O2SAT 100
[2024-08-27 04:00] VITALS: BP 143/62; PULSE 84; RESP 17; TEMP 36.8; O2SAT 95
[2024-08-27 07:55] VITALS: BP 130/56; PULSE 78; RESP 20; TEMP 36.8; O2SAT 100
[2024-08-27 12:00] VITALS: BP 121/51; PULSE 77; RESP 20; TEMP 31.1; O2SAT 100
[2024-08-27] MEDS: PREDNISONE 20MG TABLET PO SCH (18:15)
[2024-08-27 20:00] VITALS: BP 138/60; PULSE 91; RESP 18; TEMP 36.7; TEMP 36.8; O2SAT 99
[2024-08-28] VITALS: BP 103/60; PULSE 79; RESP 18; TEMP 36.7; O2SAT 99
[2024-08-28 04:00] VITALS: BP 103/60; PULSE 82; RESP 18; TEMP 36.7; O2SAT 92
[2024-08-28 07:56] VITALS: PULSE 82; RESP 18
[2024-08-28 12:45] VITALS: BP 107/63; PULSE 60; RESP 20; TEMP 36.8; O2SAT 100
[2024-08-28 14:59] VITALS: PULSE 78; RESP 18
[2024-08-28 15:23] VITALS: BP 107/63; PULSE 60; TEMP 98.2; O2SAT 100
== END 2024-08-28 16:15 | DRG 202 ==
LOC: ER 13:03 → 7WST 15:24 → EDBEDREQ 15:26 → 7EST 08-26 23:20
PROVIDERS: ADMIT Internal Medicine; ATTEND Internal Medicine
DX: J20.9 Acute bronchitis, unspecified (principal); J96.01 Acute respiratory failure with hypoxia; J45.901 Unspecified asthma with (acute) exacerbation; Z68.41 Body mass index [BMI] 40.0-44.9, adult; I42.9 Cardiomyopathy, unspecified; I11.0 Hypertensive heart disease with heart failure; I25.10 Atherosclerotic heart disease of native coronary artery without angina pectoris; K21.9 Gastro-esophageal reflux disease without esophagitis; D72.10 Eosinophilia, unspecified; K82.8 Other specified diseases of gallbladder; E78.5 Hyperlipidemia, unspecified; D72.819 Decreased white blood cell count, unspecified; E11.65 Type 2 diabetes mellitus with hyperglycemia; M75.02 Adhesive capsulitis of left shoulder; E11.42 Type 2 diabetes mellitus with diabetic polyneuropathy; E66.01 Morbid (severe) obesity due to excess calories; M85.80 Other specified disorders of bone density and structure, unspecified site; Z88.0 Allergy status to penicillin; Z91.013 Allergy to seafood; Z79.899 Other long term (current) drug therapy; M19.90 Unspecified osteoarthritis, unspecified site; I50.9 Heart failure, unspecified
CPT/HCPCS: 36415; 71045; 71275; 80048; 80076; 82962; 83036; 83880; 84484; 85025; 85379; 93005; 93970; 94070; 94640; 94664; 94760; 97110; 97162; 97164; 97166; 97530; 98960; 99285; A4606; J1200; J1650; J1815; J1885; J1940; J2919; J7512; J7626; Q9967

== ENCOUNTER 2025-03-22 12:12 | Inpatient (IN) | payer MEDICARE, MEDICAID ==
[~2025-03-22] VITALS: Ht 175.3 cm; Wt 113.4 kg
[2025-03-22] MEDS: BUDESONIDE 0.5MG/2ML NEB HHN SCH (11:54)
[~2025-03-22 12:12] MED LIST changes: -AMLO5TAB5 PO; +BENZ100C86 MT; -BRIM.2 BOTHEYE; +CETI10CA2 MT; +D-ME473S50; -DOCU-422 PO; -DORZ10DR8 BOTHEYE; -ESOM20CA PO; -FAMO-135 MT; +FLUT9.9S BOTHNSTRLS; -FURO40TA5 PO; +GUAI600T44 PO; -HUM100IN SQ; -IBUP-2030 PO; -KETO10TA2 MT; +LORA10TA7 PO; -METF100C2 PO; -METO-293 PO; +MONT-39 PO; -OMEP40CA20 MT; -PANT40TA51 PO; -POLY17PO43 PO; -POTA-189 PO; -SUCR1TAB30 PO; -TOPUD MT; -VITA400C24 PO; -VITA400T7 PO
[2025-03-22 13:09] LABS: BASOPHILS % 0.6 % (0.0-2.0); EOSINOPHILS % 3.4 % (0.0-5.0); HEMATOCRIT. 33.8 % (36.0-48.0); HEMOGLOBIN. 11.2 g/dL (12.0-16.0); LYMPHOCYTES % 26.3 % (20.0-50.0); MEAN PLATELET VOLUME 8.1 fl (7.4-10.4); MONOCYTES % 6.4 % (2.0-8.0); NEUTROPHILS % 63.3 % (40.0-76.0); PLATELET 180 x1000/uL (130-400); RED BLOOD CELL COUNT 3.50 mill/uL (4.2-5.4); RED CELL DISTRIBUTION WIDTH 13.1 % (11.6-14.6)
[2025-03-22 13:34] LABS: CREATININE 1.0 mg/dL (0.6-1.0); UREA NITROGEN BLOOD 12 mg/dL (9-23)
[2025-03-22] MEDS ORDERED: ONDANSETRON HCL 4MG/2ML INJ IV ONE (13:45)
[2025-03-22 13:59] LABS: PROTEIN TOTAL 6.0 g/dL (6.0-8.3)
[2025-03-22 14:01] LABS: ASPARTATE AMINOTRANSFERASE 15 IU/L (<34); BILIRUBIN DIRECT < 0.1 mg/dL (<=3.0); BILIRUBIN TOTAL 0.4 mg/dL (0.1-1.0)
[2025-03-22 14:08] LABS: TROPONIN I HIGH SENSITIVITY 9 ng/L (3.0-34)
[2025-03-22] MEDS: ONDANSETRON HCL 4MG/2ML INJ IV SCH (15:53)
[2025-03-22 17:56] LABS: TROPONIN I HIGH SENSITIVITY 11 ng/L (3.0-34)
[2025-03-22 19:42] LABS: CLARITY URINE CLEAR (CLEAR); COLOR URINE YELLOW (YELLOW); GLUCOSE URINE TRACE (NEGATIVE); KETONES URINE NEGATIVE (NEGATIVE); LEUKOCYTE ESTERASE URINE NEGATIVE (NEGATIVE); NITRITE URINE NEGATIVE (NEGATIVE); OCCULT BLOOD URINE NEGATIVE (NEGATIVE); PH URINE 6.0 (4.5-8.0); PROTEIN URINE NEGATIVE (NEGATIVE); SPECIFIC GRAVITY URINE 1.016 (1.005-1.030); UROBILINOGEN URINE 1.0 E.U./dL (0.2-1.0)
[2025-03-22 20:15] LABS: BACTERIA URINE 1+
[2025-03-22 20:16] LABS: RBC URINE 0-2 /hpf (0-2); SQUAMOUS EPITHELIAL CELL URINE RARE /lpf (RARE/1+); WBC URINE 0-2 /hpf (0-2)
[2025-03-22] MEDS ORDERED: ONDANSETRON HCL 4MG/2ML INJ IV PRN (22:30)
[2025-03-22] MEDS ORDERED: MAGNESIUM/ALUMINUM HYDROXIDE/SIMETHICONE 30ML UDC PO PRN (22:30)
[2025-03-22] MEDS ORDERED: IPRATROPIUM/ALBUTEROL 0.5-3(2.5)MG/3ML NEB HHN PRN (22:30)
[2025-03-22] MEDS ORDERED: DEXTROSE 50% WATER 50ML SYRINGE IV PRN (22:30)
[2025-03-22] MEDS ORDERED: CLONIDINE 0.1MG TABLET PO PRN (22:30)
[2025-03-22] MEDS ORDERED: LORAZEPAM 0.5MG TABLET PO PRN (22:30)
[2025-03-22] MEDS ORDERED: ZOLPIDEM TARTRATE 5MG TABLET PO PRN (22:30)
[2025-03-22] MEDS ORDERED: HYDRALAZINE 10 MG in SODIUM CHLORIDE 0.9% 49.5 ML IV PRN (22:30)
[2025-03-22] MEDS ORDERED: MORPHINE SULFATE 2 MG/ML INJ (NOT FOR IM USE) IV PRN (22:30)
[2025-03-22] MEDS ORDERED: ACETAMINOPHEN 325MG TABLET PO PRN ×2 (22:30)
[2025-03-22] MEDS ORDERED: GUAIFENESIN 200MG/10ML SUGAR FREE UDC PO PRN (22:30)
[2025-03-22] MEDS ORDERED: DIPHENHYDRAMINE 50MG/ML VIAL IV PRN (22:30)
[2025-03-22] MEDS ORDERED: NALOXONE HCL 0.4MG/ML VIAL IV PRN (23:00)
[2025-03-22 23:25] VITALS: BP 141/70; PULSE 79; RESP 18; TEMP 36.1; O2SAT 98
[2025-03-23] MEDS: DORZOLAMIDE 2% OPHTH 10 ML BOTTLE BOTHEYE SCH
[2025-03-23] MEDS ORDERED: HUM100IN SQ (01:02)
[2025-03-23] MEDS: KETOROLAC 30MG/ML VIAL IV PRN (01:17)
[2025-03-23] MEDS: SODIUM CHLORIDE 0.9% 1,000 ML IV ONE (01:17)
[2025-03-23] MEDS: INSULIN GLARGINE 100 UNITS/ML SUBCUT SCH (01:18)
[2025-03-23 04:35] VITALS: BP 141/70; PULSE 79; RESP 18; TEMP 36.696
[2025-03-23] MEDS: BLOOD SUGAR DIAGNOSTIC STRIP TEST SCH (06:24)
[2025-03-23] MEDS: SODIUM CHLORIDE 0.9% 3ML FLUSH IVF SCH (06:54)
[2025-03-23] MEDS: INSULIN LISPRO 100 UNITS/ML SUBCUT SCH (06:56)
[2025-03-23 08:00] VITALS: BP 152/69; PULSE 71; RESP 16; TEMP 36.7; O2SAT 98
[2025-03-23] MEDS: LINAGLIPTIN 5MG TABLET PO SCH (09:25)
[2025-03-23] MEDS: FLUTICASONE PROPIONATE 50MCG/SPRAY BOTTLE BOTHNSTRLS SCH (09:25)
[2025-03-23] MEDS: ENOXAPARIN 40MG/0.4ML SYR SUBCUT SCH (09:27)
[2025-03-23] MEDS: METFORMIN HCL 500MG TABLET PO SCH (09:28)
[2025-03-23] MEDS: LORATADINE 10MG TABLET PO SCH (09:28)
[2025-03-23] MEDS: LISINOPRIL 20MG TABLET PO SCH (09:28)
[2025-03-23] MEDS: AMLODIPINE 5MG TABLET PO SCH (09:28)
[2025-03-23] MEDS: PANTOPRAZOLE 40MG DR TABLET PO SCH (12:05)
[2025-03-23 12:13] VITALS: BP 133/75; PULSE 77; RESP 18; TEMP 36.6; O2SAT 97
[2025-03-23] MEDS: TRAMADOL 50MG TABLET PO PRN (12:14)
[2025-03-23 16:00] VITALS: BP 139/64; PULSE 80; RESP 18; TEMP 36.4; O2SAT 98
[2025-03-23] MEDS: MONTELUKAST SODIUM 10MG TABLET PO SCH (17:25)
[2025-03-23 20:00] VITALS: BP 146/61; PULSE 87; RESP 16; TEMP 36.3; O2SAT 93
[2025-03-23] MEDS: KETOROLAC 15MG/ML VIAL IV PRN (22:07)
[2025-03-23] MEDS: ATORVASTATIN CALCIUM 20MG TABLET PO SCH (22:10)
[2025-03-23 22:28] VITALS: PULSE 79; RESP 18; O2SAT 97
[2025-03-24] VITALS (8 sets, daily range): BP systolic 113–174; BP diastolic 58–79; PULSE 72–91; RESP 16–18; TEMP 35.6–36.7; O2SAT 93–99
[2025-03-24] MEDS: ENOXAPARIN 30MG/0.3ML SYR SUBCUT SCH (09:56)
[2025-03-24] MEDS ORDERED: DICL50TA9 MT (20:10)
[2025-03-24] MEDS: DICLOFENAC SODIUM 75MG DR TABLET PO SCH (21:31)
== END 2025-03-24 21:35 | disposition home or self-care (01) | DRG 552 ==
LOC: ER 12:12 → 8WST 18:15 → EDBEDREQ 18:22 → EDBEDREQTM 18:22 → ENRESERV 23:04 → 7EST 03-24 03:20
PROVIDERS: ADMIT Internal Medicine; ATTEND Internal Medicine
DX: M48.02 Spinal stenosis, cervical region (principal); E11.9 Type 2 diabetes mellitus without complications; E66.9 Obesity, unspecified; I10 Essential (primary) hypertension; E78.00 Pure hypercholesterolemia, unspecified; K21.9 Gastro-esophageal reflux disease without esophagitis; I25.10 Atherosclerotic heart disease of native coronary artery without angina pectoris; M48.061 Spinal stenosis, lumbar region without neurogenic claudication; R10.A2 Flank pain, left side; M47.816 Spondylosis without myelopathy or radiculopathy, lumbar region; M50.222 Other cervical disc displacement at C5-C6 level; Z88.0 Allergy status to penicillin; Z91.013 Allergy to seafood; Z68.31 Body mass index [BMI] 31.0-31.9, adult
CPT/HCPCS: 36415; 72141; 72146; 72148; 74176; 80048; 80076; 81003; 82962; 83036; 84484; 85025; 93005; 94070; 94640; 94664; 96374; 97165; 99285; A4606; J1650; J1815; J1885; J2405; J7626